=== PATIENT | female | born 1995 | race African-American/Black ===

== ENCOUNTER 2018-06-11 16:29 | Emergency (ER) | payer OTHER ==
[2018-06-11 16:44] VITALS: BP 112/58; PULSE 60; TEMP 98; BMI 32.0
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
== END 2018-06-11 19:47 | disposition left against medical advice (07) ==
LOC: JERFT 16:29
DX: S16.1XXA Strain of muscle, fascia and tendon at neck level, initial encounter (principal); M54.5 Low back pain; V49.49XA Driver injured in collision with other motor vehicles in traffic accident, initial encounter; Y92.488 Other paved roadways as the place of occurrence of the external cause; Y93.89 Activity, other specified; Y99.8 Other external cause status
CPT/HCPCS: 72131-TC; 84703; 99281-25